=== PATIENT | male | born 1990 | race Two or more races ===

== ENCOUNTER 2025-03-27 09:00 | Outpatient (CLI) | payer BC ==
[2025-03-27 09:31] LABS: Hematocrit 46.3 % (41.0-53.0); Hemoglobin 15.4 g/dL (13.5-17.5); Mean Corpuscular Hemoglobin 28.0 pg (28.0-32.0); Mean Corpuscular Volume 84.0 fL (80.0-100.0); Nucleated Red Blood Cells % 0.1 %
[2025-03-27 10:42] LABS: Alanine Aminotransferase 36 U/L (7-40); Albumin 4.7 g/dL (3.2-4.8); Alkaline Phosphatase 81 U/L (46-116); Anion Gap 8 (5-15); BUN/Creatinine Ratio 15.3 (10.0-20.0); Blood Urea Nitrogen 17 mg/dL (9-23); Calcium 9.5 mg/dL (8.7-10.4); Carbon Dioxide 26 mmol/L (20-31); Glucose 103 mg/dL (74-106); Potassium 4.7 mmol/L (3.5-5.1); Sodium 141 mmol/L (136-145); Total Protein 7.6 g/dL (5.7-8.2); Triglycerides 58 mg/dL (< 150)
[2025-03-27 10:43] LABS: Bilirubin, Total 0.5 mg/dL (0.2-1.0)
[2025-03-27 10:44] LABS: Chloride 107 mmol/L (98-107); Cholesterol 222 mg/dL (< 200); HDL Cholesterol 63 mg/dL (40-59)
== END 2025-03-27 17:00 | disposition home or self-care (01) ==
LOC: LAB 09:00
PROVIDERS: ATTEND Nurse Practitioner Family
DX: I10 Essential (primary) hypertension (principal); Z00.01 Encounter for general adult medical examination with abnormal findings
CPT/HCPCS: 36415; 80053; 80061; 84443; 85025